=== PATIENT | male | born 1945 | race Caucasian/White ===

== ENCOUNTER 2018-11-09 13:06 | Emergency (ER) | payer MEDICARE ==
[~2018-11-09] VITALS: Ht 185.4 cm; Wt 93.2 kg
[2018-11-09 14:01] LABS: HEMATOCRIT 37.3 % (39.0-50.0); HEMOGLOBIN 12.4 g/dl (14.0-18.0); IMMATURE GRANULOCYTES 0.2 % (0.0-5.0); MEAN CELL VOLUME 89.4 fL CALC (80.0-100.0); MEAN CORPUSCULAR HGB 29.7 pG CALC (26.0-32.0); MEAN CORPUSCULAR HGB CONC 33.2 g/L CALC (32.0-36.0); NEUT# 2.84 thou/uL (1.82-7.42); RED BLOOD COUNT 4.17 mill/uL (4.70-6.10); RED CELL DISTRI WIDTH 13.2 % (11.5-15.5)
[2018-11-09 14:22] LABS: ALBUMIN 4.3 g/dL (3.2-5.0); ALKALINE PHOSPHATASE 57 u/l (38-126); ANION GAP 14 (6-22 (CALC)); BILIRUBIN, TOTAL 0.6 mg/dL (0.0-1.4); BUN 16 mg/dL (8-23); BUN/CREATININE RATIO 24 (12-20 (CALC)); CARBON DIOXIDE 21 mmol/l (22-30); CHLORIDE 108 mmol/l (95-108); CREATININE 0.7 mg/dL (0.7-1.3); GFR > 60 ML/MIN (>=60 (CALC)); GFR FOR AFR.AMER. > 60 ML/MIN (>=60 (CALC)); POTASSIUM 3.7 mmol/l (3.5-5.1); SGOT/AST 28 u/l (19-48); SODIUM 139 mmol/l (137-146); TOTAL PROTEIN 7.8 g/dL (6.3-8.2)
[2018-11-09] MEDS ORDERED: CLONIDINE0.1 MG PO (14:34)
[2018-11-09] MEDS ORDERED: NIFEDIPINE10 M1 PO (14:34)
[2018-11-09] MEDS ORDERED: PAROXETINE10 MG PO (14:35)
[2018-11-09] MEDS ORDERED: OMEPRAZOLE10 MG PO (14:36)
[2018-11-09] MEDS ORDERED: DICLOFENAC SODI75 MG PO (14:36)
[2018-11-09] MEDS ORDERED: NIFEDIPINE ER60 M1 PO (14:39)
[2018-11-09] MEDS ORDERED: TAMSULOSIN HCL0.4 MG PO (14:40)
[2018-11-09 15:20] LABS: URINE BILIRUBIN - DIPSTICK NEGATIVE (NEGATIVE); URINE BLOOD DIPSTICK NEGATIVE (NEGATIVE); URINE COLOR YELLOW; URINE GLUCOSE - DIPSTICK NEGATIVE (NEGATIVE); URINE KETONE NEGATIVE (NEGATIVE); URINE LEUK ESTERASE NEGATIVE (NEGATIVE); URINE NITRITE - DIPSTICK NEGATIVE (Negative); URINE PROTEIN - DIPSTICK NEGATIVE (NEG-TRACE)
[2018-11-09] MEDS ORDERED: ANTIVERT PO (15:37)
[2018-11-09 15:53] VITALS: BP 150/70
== END 2018-11-09 15:53 | disposition home or self-care (01) ==
LOC: ED 13:06
DX: R42 Dizziness and giddiness (principal); E86.0 Dehydration; I10 Essential (primary) hypertension